=== PATIENT | female | born 1990 | race Caucasian/White ===

== ENCOUNTER 2018-02-05 14:19 | Emergency (ER) | payer OTHER, SELFPAY ==
[2018-02-05 14:26] VITALS: BP 127/77; PULSE 92; RESP 16; TEMP 36.9; O2SAT 100; BMI 26.1
--- NOTE | 2018-02-05 16:08 | PC.NURSE ---
Pt is 13 weeks . KVNG 11/16/18. Unable to keep much of anything down. Ate a banana today and a few sips of water, but felt too nauseated to eat more. States she feels dehydrated. Did have some nausea throughout her , but this is much worse, she states. Also having diarrhea and right lower abdominal pain that extends up into the right ribs and down into the hip.
--- NOTE | 2018-02-05 16:14 | ED.NAVMDI ---
HPI - Nausea/Vomiting/Diarrhea <SULY Daly - Last Filed: 02/05/18 19:29> General Chief complaint: Nausea/Vomiting/Diarrhea Stated complaint: NAUSEA,VOMITING,DIARRHEA,BURNING ON RIGHT SIDE Time Seen by Provider: 02/05/18 16:14 Source: patient Mode of arrival: ambulatory Limitations: no limitations History of Present Illness HPI Narrative: c/o n/v for several weeks and R side burning pain, states she is 13 weeks , MD complaint: nausea and vomiting Onset (ago): week(s) (several) Description of Vomiting: food contents, watery, bilious and continuous Description of Diarrhea: watery and other (intermittent) Associated Abdominal Pain: Yes Location of pain: right flank Radiation: does not radiate Severity: mild Quality: other (burning) Pain Consistency: constant Exacerbating factors: none Related Data Home Medications Medication Instructions Recorded Confirmed PNV cmb#95-ferrous fumarate-FA 1 tab PO DAILY 02/05/18 02/05/18 [] Vitamin D3 1 cap PO DAILY 02/05/18 02/05/18 Previous Rx's Medication Instructions Recorded ondansetron HCl [Zofran] 4 mg PO Q6-8H PRN #14 tab 02/05/18 Allergies Allergy/AdvReac Type Severity Reaction Status Date / Time No Known Drug Allergies Allergy Verified 02/05/18 14:25 Review of Systems <SULY Daly - Last Filed: 02/05/18 19:29> Constitutional Reports as per HPI Cardiovascular Denies chest pain and Denies dyspnea Respiratory Denies dyspnea Gastrointestinal Gastrointestinal: Reports as per HPI, Reports abdominal pain, Denies melena, Denies hematochezia, Denies constipation, Reports diarrhea, Reports nausea and Reports vomiting Genitourinary Reports as per HPI, Denies abnormal menses, Denies abnormal vaginal bleeding, Denies hematuria, Denies urinary frequency, Denies difficulty voiding, Denies dysuria, Denies pelvic pain, Reports flank pain, Denies urinary urgency and Denies vaginal discharge Musculoskeletal Denies back pain Exam <SULY Daly - Last Filed: 02/05/18 19:29> Initial Vital Signs Initial Vital Signs: Vital Signs Temperature 98.4 F 02/05/18 14:26 Pulse Rate 92 H 02/05/18 14:26 Respiratory Rate 16 02/05/18 14:26 Blood Pressure 127/77 02/05/18 14:26 Pulse Oximetry 100 02/05/18 14:26 Const General: cooperative, healthy appearing, comfortable and well developed Nutritional Appearance: average body habitus Orientation: alert, awake and oriented x3 Resp Effort & Inspection: normal respiratory effort and able to speak in complete sentences Auscultation: clear to auscultation bilaterally Cardio Rate: regular rate Rhythm: regular rhythm Heart Sounds: S1 normal and S2 normal GI Inspection: normal to inspection Palpation: soft Auscultation: normal bowel sounds Back/Spine/Pelvis Cervical Spine: cervical ROM normal Thoracic/Lumbar Spine: thoraco-lumbar ROM limited Skin General: no rashes or lesions noted, elasticity normal, turgor normal and warm Neuro General: alert, awake and oriented x3 Cranial Nerves: CN's II-XI intact bilaterally Cognition: normal cognition Speech: speech normal Motor: muscle tone normal throughout Sensory Exam: no sensory deficits noted Psych Appearance: grossly normal and well kempt Mental Status: mental status grossly normal Speech and Movement: speech and movement normal Mood: congruent mood Affect: normal affect Attitude: cooperative Thought Process: normal Thought Content: normal Judgment: judgment good <Bren Nelson DO - Last Filed: 02/06/18 21:20> Initial Vital Signs Initial Vital Signs: Vital Signs Temperature 98.4 F 02/05/18 14:26 Pulse Rate 92 H 02/05/18 14:26 Respiratory Rate 16 02/05/18 14:26 Blood Pressure 127/77 02/05/18 14:26 Pulse Oximetry 100 02/05/18 14:26 Course <SULY Daly - Last Filed: 02/05/18 19:29> Course Narrative: results and dc plan discussed, pt feeling better, tolerating water Orders Ordered: Discontinued Medications Sodium Chloride (Normal Saline 0.9%) 1,000 mls @ 1,000 mls/hr IV BOLUS ONE Stop: 02/05/18 17:32 Last Infusion: 02/05/18 17:42 Dose: 0 mls/hr Admin: 02/05/18 17:00 Dose: 1,000 mls/hr Ondansetron HCl (Zofran) 4 mg IV NOW ONE Stop: 02/05/18 16:34 Last Admin: 02/05/18 17:01 Dose: 4 mg Vital Signs - 8 hr 02/05/18 14:26 02/05/18 16:25 02/05/18 18:43 Temperature 98.4 F Pulse Rate 92 H 70 89 Respiratory Rate 16 14 18 Blood Pressure 127/77 Blood Pressure [Right Arm] 119/66 111/57 L Pulse Oximetry 100 100 100 <Bren Nelson DO - Last Filed: 02/06/18 21:20> Orders Ordered: Discontinued Medications Sodium Chloride (Normal Saline 0.9%) 1,000 mls @ 1,000 mls/hr IV BOLUS ONE Stop: 02/05/18 17:32 Last Infusion: 02/05/18 17:42 Dose: 0 mls/hr Admin: 02/05/18 17:00 Dose: 1,000 mls/hr Ondansetron HCl (Zofran) 4 mg IV NOW ONE Stop: 02/05/18 16:34 Last Admin: 02/05/18 17:01 Dose: 4 mg Vital Signs - 8 hr 02/05/18 14:26 02/05/18 16:25 02/05/18 18:43 Temperature 98.4 F Pulse Rate 92 H 70 89 Respiratory Rate 16 14 18 Blood Pressure 127/77 Blood Pressure [Right Arm] 119/66 111/57 L Pulse Oximetry 100 100 100 MDM - Nausea/Vomiting/Diarrhea <SULY Daly - Last Filed: 02/05/18 19:29> Differential Diagnosis Likely traveler's diarrhea, food poisoning, gastroenteritis, clostridium difficile infection, drug-induced nausea and vomiting, dehydration and other (uti, pyelo, kidney stone) Lab Data Result diagrams: 02/05/18 16:50 02/05/18 16:50 Lab Results 02/05/18 02/05/18 Range/Units 16:50 16:50 WBC 11.6 H (4.5-11.0) X10^3/uL RBC 4.31 (4.0-5.2) X10^6/uL Hgb 11.9 L (12.0-16.0) g/dL Hct 35.5 L (36-46) % MCV 82.5 (80-100) fL MCH 27.6 (26-34) PG MCHC 33.5 (30-36) % RDW 13.4 (11.6-14.8) % Plt Count 318 (150-400) X10^3/uL Neut % (Auto) 81.0 H (50-75) % Lymph % (Auto) 12.7 L (25-40) % [place] % (Auto) 5.6 (3-14) % Eos % (Auto) 0.1 L (2-4) % Baso % (Auto) 0.6 (0-2) % Neut # (Auto) 9400 H (0624-1837) /uL Sodium 139 (137-145) mmol/L Potassium 3.9 (3.4-5.1) mmol/L Chloride 102 (98-107) mmol/L Carbon Dioxide 23 (22-32) mmol/L BUN 4 L (7-17) mg/dL Creatinine 0.50 L (0.52-1.04) mg/dL Estimated GFR > 60.0 (>60) mL/min BUN/Creatinine Ratio 8.0 (6-22) Glucose 83 (70-100) mg/dL Calcium 9.7 (8.4-10.2) mg/dL Total Bilirubin 0.4 (0.2-1.3) mg/dL AST 18 (14-36) IU/L ALT 23 (9-52) IU/L Alkaline Phosphatase 72 (38-126) U/L Total Protein 7.8 (6.3-8.2) g/dL Albumin 4.4 (3.5-5.0) g/dL Globulin 3.4 (1.7-4.1) g/dL Albumin/Globulin Ratio 1.3 (1.0-2.8) Amylase 49 (30-110) U/L Lipase 81 (23-300) U/L HCG, Quant 54136 mIU/mL Urine Dip Bedside Urine Glucose Negative Bedside Urine Bilirubin - Negative Bedside Urine Ketone ++ 40 Urine Specific [place] 1.010 Bedside Urine Occult Blood +/- Bedside Urine pH 7.0 Bedside Urine Protein - Negative Bedside Urine Urobilinogen - Negative Bedside Urine Nitrite - Negative Bedside Urine Leukocytes - Negative Esterase <Bren Nelson, - Last Filed: 02/06/18 21:20> Lab Data Lab Results 02/05/18 02/05/18 Range/Units 16:50 16:50 WBC 11.6 H (4.5-11.0) X10^3/uL RBC 4.31 (4.0-5.2) X10^6/uL Hgb 11.9 L (12.0-16.0) g/dL Hct 35.5 L (36-46) % MCV 82.5 (80-100) fL MCH 27.6 (26-34) PG MCHC 33.5 (30-36) % RDW 13.4 (11.6-14.8) % Plt Count 318 (150-400) X10^3/uL Neut % (Auto) 81.0 H (50-75) % Lymph % (Auto) 12.7 L (25-40) % [place] % (Auto) 5.6 (3-14) % Eos % (Auto) 0.1 L (2-4) % Baso % (Auto) 0.6 (0-2) % Neut # (Auto) 9400 H (7169-6329) /uL Sodium 139 (137-145) mmol/L Potassium 3.9 (3.4-5.1) mmol/L Chloride 102 (98-107) mmol/L Carbon Dioxide 23 (22-32) mmol/L BUN 4 L (7-17) mg/dL Creatinine 0.50 L (0.52-1.04) mg/dL Estimated GFR > 60.0 (>60) mL/min BUN/Creatinine Ratio 8.0 (6-22) Glucose 83 (70-100) mg/dL Calcium 9.7 (8.4-10.2) mg/dL Total Bilirubin 0.4 (0.2-1.3) mg/dL AST 18 (14-36) IU/L ALT 23 (9-52) IU/L Alkaline Phosphatase 72 (38-126) U/L Total Protein 7.8 (6.3-8.2) g/dL Albumin 4.4 (3.5-5.0) g/dL Globulin 3.4 (1.7-4.1) g/dL Albumin/Globulin Ratio 1.3 (1.0-2.8) Amylase 49 (30-110) U/L Lipase 81 (23-300) U/L HCG, Quant 22853 mIU/mL Urine Dip Bedside Urine Glucose Negative Bedside Urine Bilirubin - Negative Bedside Urine Ketone ++ 40 Urine Specific [place] 1.010 Bedside Urine Occult Blood +/- Bedside Urine pH 7.0 Bedside Urine Protein - Negative Bedside Urine Urobilinogen - Negative Bedside Urine Nitrite - Negative Bedside Urine Leukocytes - Negative Esterase Discharge Plan Departure Patient Disposition: Home Clinical Impression: Gastroenteritis Discharge Date/Time: 02/05/18 19:16 Interventions: ED Discharge Assessment Last Done: 02/05/18 19:14 Instructions: DI for Viral Gastroenteritis -- Adult, DI for Bacterial Gastroenteritis -- Adult, Gastroenteritis Diet Prescriptions: New ondansetron HCl [Zofran] 4 mg tablet 4 mg PO Q6-8H PRN (Reason: nausea and vomiting) Qty: 14 RF: 0 No Action PNV cmb#95-ferrous fumarate-FA [] 28 mg iron- 800 mcg tablet 1 tab PO DAILY RF: 0 Vitamin D3 1 cap PO DAILY RF: 0 Referrals: Aneudy Serrato MD [Non-Staff] - Mirela Lerma DO [Non-Staff] - (in approx 2-3 days) Nicolasa Bermudez MD [Physician] - Calixto Ivy MD [Non-Staff] - Debbie Brown MD [Non-Staff] - <Bren Nelson DO - Last Filed: 02/06/18 21:20> Cosign ED Attending Cosignature Attestation: I was immediately available in the department for consultation. This documentation has been reviewed and I agree with assessment and plan. Supervised by Bren Nelson DO
[2018-02-05 16:25] VITALS: BP 119/66; PULSE 70; RESP 14; O2SAT 100
--- NOTE | 2018-02-05 16:33 | DI.US.S_ITS ---
PROCEDURE: US ABDOMEN COMPLETE INDICATIONS: r sided abd pain, TECHNIQUE: Real-time scanning was performed of the abdominal and retroperitoneal organs, with image documentation. COMPARISON: None. FINDINGS: Liver: Liver is normal in size and homogeneous in echotexture and measures 14.0 cm in size. Gallbladder: Absent. Biliary ducts: Intrahepatic bile ducts are non-dilated. Extrahepatic /common bile duct caliber measures 10 mm. Pancreas: Visualized portions of the pancreatic head are sonographically normal. Pancreatic body and tail cannot be evaluated on this exam as they were obscured by overlying bowel gas. Spleen: Spleen is normal in size and homogeneous in echotexture. Kidneys: Kidneys are normal in size and echotexture. Right kidney measures 7.5 cm long; left kidney measures 13.5 cm long. No hydronephrosis or nephrolithiasis. No solid masses. 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 Aorta: Visualized aorta is normal in caliber at less than 3 cm. There is calcified plaque identified. Iliacs: Proximal common iliac arteries are normal in caliber at less than 2.5 cm. IVC: Intrahepatic inferior vena cava is patent. Miscellaneous: No free abdominal fluid. A single intrauterine gestation with a measured heart rate of 168 beats per min is identified. Please note that no anatomy was assessed on this exam. IMPRESSION: #1. Common bile duct measures 10 mm in size, which can be normal in the postcholecystectomy state. #2. Right kidney is asymmetrically smaller than the left kidney; clinical correlation for prior history of renal disease or right renal insult recommended. #3. Single intrauterine gestation with a measured heart rate of 168 beats per minute. Please note that no anatomy was assessed on this exam as this exam was not performed for dedicated assessment of anatomy. Dictated by: Dante Madera M.D. on 02/05/2018 at 18:25 Approved by: Dante Madera M.D. on 02/05/2018 at 18:30
[2018-02-05] MEDS: SODIUM CHLORIDE 0.9% 1,000 ML 1000 ML IV (17:00)
[2018-02-05] MEDS: ONDANSETRON 4 MG/2 ML INJ IV (17:01)
[2018-02-05 17:04] LABS: Add Manual Diff / Slide Review NO; Basophils Percent Auto 0.6 % (0-2); Eosinophils Percent Auto 0.1 % (2-4); Hematocrit 35.5 % (36-46); Hemoglobin 11.9 g/dL (12.0-16.0); Lymphocytes Percent Auto 12.7 % (25-40); Mean Corpuscular HGB Conc 33.5 % (30-36); Mean Corpuscular Hemoglobin 27.6 PG (26-34); Mean Corpuscular Volume 82.5 fL (80-100); Monocytes Percent Auto 5.6 % (3-14); Neutrophils Absolute Auto 9400 /uL (3000-5900); Platelet Count 318 X10^3/uL (150-400); Red Blood Cell Count 4.31 X10^6/uL (4.0-5.2); Red Cell Distribution Width 13.4 % (11.6-14.8); White Blood Cell Count 11.6 X10^3/uL (4.5-11.0)
[2018-02-05 17:17] LABS: Alanine Aminotransferase 23 IU/L (9-52); Albumin 4.4 g/dL (3.5-5.0); Albumin Globulin Ratio 1.3 (1.0-2.8); Alkaline Phosphatase 72 U/L (38-126); Amylase 49 U/L (30-110); Aspartate Aminotransferase 18 IU/L (14-36); Bilirubin Total 0.4 mg/dL (0.2-1.3); Blood Urea Nitrogen 4 mg/dL (7-17); Calcium 9.7 mg/dL (8.4-10.2); Carbon Dioxide 23 mmol/L (22-32); Chloride 102 mmol/L (98-107); Estimated Glomerular Filt Rate > 60.0 mL/min (>60); Globulin 3.4 g/dL (1.7-4.1); Glucose 83 mg/dL (70-100); HEMOLYSIS < 15 (0-50); Lipase 81 U/L (23-300); Potassium 3.9 mmol/L (3.4-5.1); Sodium 139 mmol/L (137-145); Total Protein 7.8 g/dL (6.3-8.2)
[2018-02-05 18:03] LABS: HCG Quantitative /Beta subunit 93337 mIU/mL
[2018-02-05 18:43] VITALS: BP 111/57; PULSE 89; RESP 18; O2SAT 100
== END 2018-02-05 19:16 | disposition home or self-care (01) ==
PROVIDERS: Emergency Provider Nurse Practitioner
DX: O26.891 Other specified pregnancy related conditions, first trimester (principal); K52.9 Noninfective gastroenteritis and colitis, unspecified; Z3A.13 13 weeks gestation of pregnancy
CPT/HCPCS: 36591; 76700; 80053; 81003; 82150; 83690; 84702; 85025; 96361; 96374; 99283; 99284; J2405

== ENCOUNTER → 2018-03-04 14:08 | Outpatient (CLI) | payer OTHER, SELFPAY ==
[2018-03-07 13:49] LABS: HSV 2 IGG AB < 0.90 index (< 0.90); HSV1IGG < 0.90 index (< 0.90)
[2018-03-08 13:38] LABS: AFP, Serum 34.9 ng/mL; Calc Gestational Age 16.4; Cigarette Smoker NO; Collection Date 120318; Donated Egg NOT GIVEN; Donor Egg Age NOT GIVEN; Estriol, Free 0.66 ng/mL; Inhibin A, Dimeric 160 pg/mL; Maternal Ethnicity HISPANIC; Maternal Weight 156 lbs; Number of Fetuses 1; Previous Pregnancy Down Syndro NOT GIVEN; hCG, MoM 1.48; hCG, Serum 46.1 IU/mL
== END ==
PROVIDERS: Visit Provider Obstetrics & Gynecology
DX: Z34.82 Encounter for supervision of other normal pregnancy, second trimester (principal); Z34.92 Encounter for supervision of normal pregnancy, unspecified, second trimester
CPT/HCPCS: 36415; 82105; 82677; 84702; 86336; 86695; 86696

== ENCOUNTER → 2018-04-03 07:15 | Outpatient (CLI) | payer OTHER, SELFPAY ==
--- NOTE | 2018-04-03 07:16 | DI.US.S_ITS ---
PROCEDURE: US OB >= 14 WEEKS FETUS INDICATIONS: ANATOMY OUTSIDE/PRIOR DATING DATA: Last menstrual period (LMP): Not available. LMP-based estimated date of delivery (KVNG): Not available. First dating scan (date and location): This study, 04/03/18. Estimated date of delivery (KVNG) from first dating scan: 08/19/18, plus or -2 weeks. TECHNIQUE: Real-time scanning was performed of the fetus, with image documentation and biometric measurements. Endovaginal scanning: Not necessary for this study COMPARISON: [facility], , US ABDOMEN COMPLETE, 02/05/2018, 17:18. [facility], , US OB >= 14 WEEKS FETUS, 03/01/2018, 8:39. FINDINGS: General: A single living intrauterine gestation is present. Presentation: Breech. Placenta: Placental position is anterior low lying, without previa. Lower placental edge 2 cm or less from internal cervical os qualifies as low lying placenta. Amniotic fluid index: 11.8 cm, normal range is 5-24 cm. heart rate: 147 beats per minute. Maternal cervical canal: 3.1 cm long. Normal lower limit is 2.5 cm. biometrics: Biparietal diameter: 4.5 cm, 19 weeks 3 days Head circumference: 17.5 cm, 20 weeks 0 days Abdominal circumference: 14.9 cm, 20 weeks 1 day Femur length: 3.6 cm, 21 weeks 2 days Estimated gestational age from initial scan: not applicable. Composite gestational age from present scan: 20 weeks 2 days Estimated weight and percentile: 360 g, percentile not available. Measurement variability for biometric dating: +/- 7 days from 14 weeks to 15 weeks 6 days gestation, +/- 10 days from 16 weeks to 21 weeks 6 days gestation, +/- 2 weeks from 22 weeks to 27 weeks 6 days gestation, +/- 3 weeks for 28 weeks gestation or later. weight reference: 4500 g or EFW >90/95% is considered macrosomia or large for gestational age. EFW <10% is small for gestational age. EFW 5% or less is considered intra-uterine growth restriction. Anatomic survey: Neuro: Ventricles are non-dilated at less than 10 mm. Cisterna magna is normal at 3-11 mm. Cerebellum is normal in size and morphology. Nuchal skin fold: Normal at less than 6 mm between 14-21 weeks gestational age. Face: Nose and lips, facial profile are normal. Spine: No evidence for spina bifida. Heart: 4-chambered heart is present, with normal ventricular outflow tracts. Diaphragm: Diaphragm is intact. Stomach: Left-sided stomach is present. Kidneys: No hydronephrosis. Normal is less than 5 mm in 2nd trimester, less than 7 mm in 3rd trimester. Cord: 3-vessel cord has orthotopic insertion. Bladder: Normal in size. Extremities: All 4 extremities identified. IMPRESSION: Single living intrauterine gestation, with current breech presentation and anterior low lying placenta with the placental margin approaching within 7 mm of the internal os of the cervical canal. No anomaly seen. The delivery date is projected to be centered on 08/19/18. Dictated by: Scott Vargas M.D. on 04/03/2018 at 8:19 Approved by: Scott Vargas M.D. on 04/03/2018 at 8:22
== END ==
PROVIDERS: Visit Provider Obstetrics & Gynecology
DX: Z34.82 Encounter for supervision of other normal pregnancy, second trimester (principal); Z3A.20 20 weeks gestation of pregnancy
CPT/HCPCS: 76811

== ENCOUNTER → 2018-05-10 10:21 | Outpatient (CLI) | payer OTHER, SELFPAY ==
[2018-05-10 11:48] LABS: Hemoglobin 10.5 g/dL (12.0-16.0)
[2018-05-10 12:00] LABS: GTT (PREG) 1 Hour PP 50gm Dose 77 mg/dL (76-139)
== END ==
PROVIDERS: Visit Provider Obstetrics & Gynecology
DX: Z34.82 Encounter for supervision of other normal pregnancy, second trimester (principal)
CPT/HCPCS: 36415; 82950; 85014; 85018

== ENCOUNTER 2018-05-18 06:05 | Observation (INO) | payer OTHER, SELFPAY ==
--- NOTE | 2018-05-18 | DI.US.S_ITS ---
PROCEDURE: US RENAL COMPLETE INDICATIONS: RIGHT FLANK PAIN TECHNIQUE: Real-time scanning was performed of the kidneys and bladder, with image documentation. COMPARISON: None. FINDINGS: Kidneys: Right kidney measures 8.5 cm long; left kidney measures 11.7 cm long. Right renal cortical thickness is 1.7 cm; left renal cortical thickness is 2.0 cm. Renal cortical echotexture is normal. No hydronephrosis or nephrolithiasis. No suspicious solid mass lesions. Bladder: Unfilled urinary bladder. Miscellaneous: A single living fetus is seen with the cardiac rate of 141 beats per minute. IMPRESSION: No visible urinary calcifications or evidence of obstructive uropathy. Dictated by: Tish Grace M.D. on 05/18/2018 at 12:17 Approved by: Tish Grace M.D. on 05/18/2018 at 12:19
[2018-05-18 06:24] LABS: Bacteria Urine None Seen; WBC Urine None Seen (0-5/HPF)
[2018-05-18 06:26] LABS: Appearance Urine UA CLEAR; Bilirubin Urine UA NEGATIVE (NEGATIVE); Color Urine UA YELLOW; Glucose Urine UA NEGATIVE (Negative); Ketones Urine UA NEGATIVE (NEGATIVE); Leukocyte Esterase Urine UA NEGATIVE (NEGATIVE); Nitrite Urine UA NEGATIVE (Negative); Occult Blood Urine UA TRACE-LYSED (Negative); Protein Urine UA NEGATIVE (Negative); Specific Gravity Urine UA 1.015 (1.000-1.035); Urobilinogen Urine UA 0.2 E.U./dL (0.2)
[2018-05-18 06:58] LABS: Add Manual Diff / Slide Review NO; Basophils Absolute Auto 100 /uL (0-100); Basophils Percent Auto 0.7 % (0-2); Eosinophils Absolute Auto 100 /uL (0-450); Eosinophils Percent Auto 0.5 % (2-4); Hematocrit 32.1 % (36-46); Hemoglobin 10.6 g/dL (12.0-16.0); Lymphocytes Absolute Auto 1800 /uL (1100-4500); Lymphocytes Percent Auto 15.1 % (25-40); Mean Corpuscular Hemoglobin 27.7 PG (26-34); Mean Corpuscular Volume 83.9 fL (80-100); Monocytes Absolute Auto 900 /uL (0-900); Monocytes Percent Auto 7.1 % (3-14); Neutrophils Absolute Auto 9300 /uL (1500-7000); Neutrophils Percent Auto 76.6 % (50-75); Platelet Count 300 X10^3/uL (150-400); Red Blood Cell Count 3.82 X10^6/uL (4.0-5.2); Red Cell Distribution Width 15.1 % (11.6-14.8); White Blood Cell Count 12.1 X10^3/uL (4.5-11.0)
[2018-05-18 07:01] LABS: Culture Indicated Urine Cult Not Indicated; RBC Urine 0-1/HPF (0-5/HPF); Squamous Epithelial Cell Urine 0-1 /HPF
== END 2018-05-18 10:15 | disposition home or self-care (01) ==
PROVIDERS: PCP Obstetrics & Gynecology
DX: O26.892 Other specified pregnancy related conditions, second trimester (principal); Z3A.27 27 weeks gestation of pregnancy; R10.9 Unspecified abdominal pain
CPT/HCPCS: 59025; 59050; 76770; 81001; 85025; G0378; G0379

== ENCOUNTER → 2018-07-23 15:13 | Outpatient (CLI) | payer OTHER, SELFPAY ==
[2018-07-24 12:38] LABS: Strep Grp B PCR NEG for Grp B Strep
== END ==
PROVIDERS: PCP Obstetrics & Gynecology; Visit Provider Obstetrics & Gynecology
DX: Z34.83 Encounter for supervision of other normal pregnancy, third trimester (principal); Z3A.36 36 weeks gestation of pregnancy
CPT/HCPCS: 87653

== ENCOUNTER 2018-08-05 00:19 | Outpatient (CLI) | payer OTHER, SELFPAY | END 2018-08-05 01:05 | disposition home or self-care (01) | LOC: LABOR 00:26 → OB 08-06 16:38 | PROVIDERS: PCP Obstetrics & Gynecology | DX: O47.1 False labor at or after 37 completed weeks of gestation (principal); Z3A.38 38 weeks gestation of pregnancy | CPT/HCPCS: 59025; G0378; G0379 ==

== ENCOUNTER 2018-08-07 09:56 | Inpatient (IN) | payer OTHER, SELFPAY ==
--- NOTE | 2018-08-07 12:16 | PM.OBHP.1 ---
OB HPI Date/Time Date of admission: 08/07/18 Date Patient Seen: 08/07/18 Time Patient Seen: 12:16 History of Present Condition Chief complaint: OBS : 2 Para: 1 Estimated Date of Delivery: 08/16/18 Estimated Gestational Age (weeks): 38 Narrative: Cintia Rios is a 28 year old female admitted with spontaneous rupture membranes History of Present care: good care, initiated at week # (10), number of visits (8) and pounds weight gain (21) Dating criteria: based on 1st trimester US only Ultrasounds: normal mid trimester US Obstetrical complications: none Medical complications: none Preadmission Labs Blood type: B (+) positive -: Antibody screen: negative, GBS status: negative, HBsAG: negative, HIV: negative and RPR/VDLR: negative -: Chlamydia screen: not detected and Gonorrhea screen: not detected -: Rubella: immune and Varicella: immune HCAB: negative 1 hr GTT: 77 Prior (ies) History: 2015 male 2 day induction Evaluation Evaluation Baseline heart rate: 140 Variability: Moderate (11-25) monitor accelerations: Present monitor decelerations: Absent Uterine Contraction Intensity: Mild Category of Tracing: I Cervical dilation (cm): 3 Cervical effacement (%): 80 station: -1 Non-invasive Membranes Rupture Test: positive [facility] Medical History (Updated 08/07/18 @ 13:16 by Nicolasa Bermudez MD) Anxiety (Chronic) Surgical History (Updated 08/07/18 @ 13:17 by Nicolasa Bermudez MD) History of cholecystectomy (Inactive) Social History Smoking Status: Never smoker Social History Smoking Status: Never smoker Meds Home Medications Medication Instructions Recorded Confirmed Type PNV cmb#95-ferrous fumarate-FA 1 tab PO DAILY 02/05/18 02/05/18 History [] Vitamin D3 1 cap PO DAILY 02/05/18 02/05/18 History ondansetron HCl [Zofran] 4 mg PO Q6-8H PRN #14 tab 02/05/18 Rx Allergies Allergy/AdvReac Type Severity Reaction Status Date / Time No Known Drug Allergies Allergy Verified 02/05/18 14:25 Review of Systems Review of Systems Patient has been having leakage of fluid probably since 5:00 p.m. yesterday evening on 08/06/2018. No regular contractions. Good movement. No fevers. No signs or symptoms of preeclampsia. All systems reviewed & are unremarkable except as noted in HPI and below Exam Vital Signs (past 8 hours): Blood pressure is 108/68, pulse of 83 Narrative Exam Narrative: HEENT exam within normal limits. Lungs are clear to auscultation percussion. Heart is regular rate and rhythm no S3-S4 or murmurs. Abdomen is gravid. is vertex. Extremities without edema and nontender. Objective Labs Result Diagrams: 08/07/18 12:45 Assessment and Plan Assessment and Plan Assessment and Plan narrative: 38 and 5/7 weeks gestation with premature rupture of membranes and not in active labor. Will begin Pitocin. Patient requesting epidural catheter. Will watch for signs of infection. Will start antibiotics later this afternoon for prolonged rupture membranes. Time Spent with Patient Total time spent with greater than 50% in coordination of care (as documented) at patient's floor/unit and/or counseling patient:: 15-24 minutes
[2018-08-07 13:07] LABS: Basophils Absolute Auto 100 /uL (0-100); Eosinophils Absolute Auto 100 /uL (0-450); Eosinophils Percent Auto 0.5 % (2-4); Hematocrit 38.3 % (36-46); Monocytes Absolute Auto 800 /uL (0-900); White Blood Cell Count 11.8 X10^3/uL (4.5-11.0)
[2018-08-07 13:12] LABS: Add Manual Diff / Slide Review NO; Basophils Percent Auto 0.4 % (0-2); Hemoglobin 12.3 g/dL (12.0-16.0); Lymphocytes Absolute Auto 1700 /uL (1100-4500); Lymphocytes Percent Auto 14.5 % (25-40); Mean Corpuscular HGB Conc 32.1 % (30-36); Mean Corpuscular Hemoglobin 26.6 PG (26-34); Mean Corpuscular Volume 82.9 fL (80-100); Neutrophils Absolute Auto 9100 /uL (1500-7000); Neutrophils Percent Auto 77.6 % (50-75); Platelet Count 280 X10^3/uL (150-400); Red Blood Cell Count 4.62 X10^6/uL (4.0-5.2); Red Cell Distribution Width 15.2 % (11.6-14.8)
[2018-08-07] MEDS: LACTATED RINGERS 1,000 ML 100 ML IV (13:28)
[2018-08-07] MEDS: OXYTOCIN PREMIX 30 UNIT/500 ML PLAST..BAG IV (13:31)
[2018-08-07 13:40] VITALS: BP 109/69
[2018-08-07] MEDS: CEFAZOLIN 2 GM/100 ML FROZ.PIGGY IV (17:17)
[2018-08-07] MEDS: miSOPROStol 200 MCG TABLET 800 MCG PR (23:05)
[2018-08-07] MEDS: METHYLERGONOVINE 0.2 MG/ML VIAL IM (23:10)
[2018-08-07] MEDS: CARBOPROST 250 MCG/ML AMPUL IM (23:15)
[2018-08-07] MEDS: OXYTOCIN 10 UNIT/ML VIAL IM (23:25)
--- NOTE | 2018-08-07 23:25 | P.PCNOB_ITS ---
Events: Prolonged Rupture of Membrane Delivery date: 08/07/18 Induction method: per pitocin protocol Delivery monitor: external FHT and external uterine Route of delivery: L&D Laceration Description: None Estimated blood loss (mL): 400 Anesthesia type: Epidural Narrative: Patient arrived on Labor and delivery with prolonged rupture membranes. She was started on Pitocin. She received an epidural catheter for pain control. She received 1 dose of IV antibiotics for prolonged rupture membranes. heart tones category 1 to category 2 throughout labor. Patient delivered spontaneously over an intact perineum. The a viable female infant was placed on the maternal abdomen. The cord was clamped and cut after it stopped pulsating and cord bloods obtained. The placenta delivered spontaneously, intact, with 3 vessels. There were no cervical, vaginal, or perineal tears. Patient had uterine atony that was treated with Pitocin, Methergine, Prostin, Hemabate. Both infant mother doing well. [place] Baby 1: gender: Female Presentation: vertex position: Right Occiput Anterior Placenta delivery description: Spontaneous cord vessel description: 3 Vessels score (1 min): 9 score (5 min): 9 Plan for aftercare: Routine post vaginal delivery
[2018-08-08] MEDS: IBUPROFEN 600 MG TABLET PO ×3 (07:12→21:52)
[2018-08-08 07:25] LABS: Add Manual Diff / Slide Review NO; Basophils Absolute Auto 100 /uL (0-100); Basophils Percent Auto 0.4 % (0-2); Eosinophils Absolute Auto 0 /uL (0-450); Eosinophils Percent Auto 0.1 % (2-4); Hematocrit 28.5 % (36-46); Hemoglobin 9.3 g/dL (12.0-16.0); Lymphocytes Absolute Auto 1800 /uL (1100-4500); Lymphocytes Percent Auto 10.9 % (25-40); Mean Corpuscular HGB Conc 32.6 % (30-36); Mean Corpuscular Hemoglobin 26.9 PG (26-34); Mean Corpuscular Volume 82.6 fL (80-100); Monocytes Absolute Auto 1500 /uL (0-900); Monocytes Percent Auto 9.2 % (3-14); Neutrophils Absolute Auto 12700 /uL (1500-7000); Neutrophils Percent Auto 79.4 % (50-75); Platelet Count 247 X10^3/uL (150-400); Red Blood Cell Count 3.45 X10^6/uL (4.0-5.2); Red Cell Distribution Width 15.3 % (11.6-14.8)
[2018-08-08 08:44] VITALS: TEMP 37.1
[2018-08-08] MEDS: HYDROCODONE/ACET 5/325 TABLET 2 TAB PO ×2 (08:44→18:33)
[2018-08-08] MEDS: LANOLIN OINT 7 GM 1 APPLIC TOP (08:46)
--- NOTE | 2018-08-08 15:46 | P.PNOB_ITS ---
Subjective - OB Patient comments: other (c/o cramping) baby status: nursing well [place] feeding status: exclusively breast feeding Date Patient Seen: 08/08/18 Time Patient Seen: 10:35 Interval history: Patient is a 28-year-old day # 0-1 status post spontaneous vaginal delivery with a hemorrhage. She complains of cramping. No significant bleeding today. Exam Vital Signs (past 8 hours): - 08/08/18 08:44 Temperature 98.7 F Narrative Exam Narrative: Generally: Patient lying on her side, in mild distress secondary to uterine cramping Fundus: Firm at U -1 Extremities: Negative Hom[place], no edema Objective Labs Result Diagrams: 08/08/18 06:25 Labs: Laboratory Results - last 24 hr 08/08/18 06:25 WBC 16.0 H RBC 3.45 L Hgb 9.3 L Hct 28.5 L MCV 82.6 MCH 26.9 MCHC 32.6 RDW 15.3 H Plt Count 247 Neut % (Auto) 79.4 H Lymph % (Auto) 10.9 L [place] % (Auto) 9.2 Eos % (Auto) 0.1 L Baso % (Auto) 0.4 Neut # (Auto) 63329 H Lymph # (Auto) 1800 [place] # (Auto) 1500 H Eos # (Auto) 0 Baso # (Auto) 100 Assessment & Plan Plan day: 1 plan OB: routine care Time Spent With Patient Total time spent is greater than 50% in coordination of care (as documented) at patient's floor/unit and/or counseling patient: 15-24 minutes
[2018-08-09] MEDS: IBUPROFEN 600 MG TABLET PO (07:21)
--- NOTE | 2018-08-09 08:01 | P.DS_ITS ---
Discharge Providers Date of admission: 08/07/18 09:56 Discharge Date: 08/09/18 Primary care physician: Oksana Allen MD Consults: 08/07/18 12:15 Consult to Anesthesiology Urgent Comment: Consulting Provider: Anesthesiologist Reason for consultation: Epidural Has provider been notified: Yes 08/07/18 23:48 Consult to Email Marketing Processor Routine Comment: Discharge provider: Nicolasa Bermudez MD Summary Date Patient Seen: 08/09/18 Time Patient Seen: 08:01 Procedures: Epidural catheter, vaginal delivery Hospital Course: Patient was admitted with premature rupture membranes. She was started on Pitocin to to induce labor. She received IV antibiotics for prolonged rupture membranes. She had an epidural catheter for pain control. She had a spontaneous vaginal delivery without tears. She had a hemorrhage that required multiple medications to control. Patient is without difficulty. She complains of right hip pain and right lower quadrant cramping that radiates down her leg. No signs or symptoms of preeclampsia. Patient is urinating well and ambulatory. Peripartum Data Infant Delivery Method: Natural Vaginal Laceration description: None Procedures: Pitocin augmentation of labor, IV antibiotics for prolonged rupture membranes, epidural catheter, spontaneous vaginal delivery. complications: uterine atony 1: Gender: Female Disposition of : home Discharge Diagnosis (1) Normal vaginal delivery: Status: Acute (2) Acute blood loss anemia: Status: Acute Status at Discharge Cognitive/behavioral status at discharge: oriented Functional status at discharge: independent ambulation Overall status at discharge: patient is progressing back to baseline Time Spent with Patient Total time spent providing and/or coordinating discharge services: Less than 30 minutes Objective Labs Result Diagrams: 08/08/18 06:25 Exam Vital Signs (past 8 hours): Blood pressure 110/68, pulse 75, temperature 98.2? Narrative Exam Narrative: Abdomen is soft nontender. Uterus is firm, U -1, nontender. mild lochia. Extremities without edema and nontender. Patient's blood type is B positive and she is rubella immune Discharge Plan Discharge Plan Patient Disposition: Home Discharge Med Rec/Prescriptions Prescriptions: New hydrocodone-acetaminophen 5-325 mg Tablet 2 tab PO Q4HR PRN (Reason: Pain, Severe (7-10)) Qty: 30 RF: 0 ibuprofen 600 mg Tablet 600 mg PO Q6HR PRN (Reason: Pain, Mild (1-3)) Qty: 30 RF: 0 docusate sodium 250 mg Capsule 250 mg PO DAILY Qty: 20 RF: 0 breast pump device .ROUTE .MEDSUPPLY Qty: 1 RF: 0 ferrous gluconate 324 mg (37.5 mg iron) tablet 324 mg PO BID Qty: 60 RF: 0 Continued PNV cmb#95-ferrous fumarate-FA 28 mg iron- 800 mcg tablet 1 tab PO DAILY RF: 0 Vitamin D3 1 cap PO DAILY RF: 0 Follow up/Referrals: Oksana Allen MD [Primary Care Provider] - 6 Weeks Provider Discharge Instructions Diet: Regular Activity: nothing in vagina for 6 weeks Skin/Wound/Dressing Care Report to your healthcare provider any signs of infection, such as:: chills, fever, night sweats and increased pain Visit Report/Discharge Packet Stand Alone Forms: Discharge: Care Discharge Data Primary Care Provider: Oksana Allen Attending Provider: Oksana Allen Admit Date/Time: 08/07/18 09:56
[2018-08-09] MEDS: DOCUSATE 250 MG CAPSULE PO (09:02)
[2018-08-09] MEDS: PRENATAL VIT,CALC/IRON/FOLIC 1 TABLET 1 TAB PO (09:02)
[2018-08-09] MEDS: HYDROCODONE/ACET 5/325 TABLET 2 TAB PO (12:42)
[2018-08-09 12:56] VITALS: BP 102/62; PULSE 72; RESP 18; TEMP 36.7
== END 2018-08-09 15:05 | disposition home or self-care (01) | DRG 806 ==
PROVIDERS: Specialist; Admitting Provider Obstetrics & Gynecology; PCP Obstetrics & Gynecology; Visit Provider Obstetrics & Gynecology
DX: O42.02 Full-term premature rupture of membranes, onset of labor within 24 hours of rupture (principal); O72.1 Other immediate postpartum hemorrhage; Z37.0 Single live birth; D62 Acute posthemorrhagic anemia; Z3A.38 38 weeks gestation of pregnancy
CPT/HCPCS: 01967; 36415; 59050; 59400; 59409; 76815; 84112; 85025; 86850; 86900; 86901; G0379; J0690; J2210; J2590; J3010; S0191